=== PATIENT | female | born 1955 | race American Indian/Alaskan Native ===

== ENCOUNTER 2016-09-30 10:53 | Outpatient (CLI) | payer MEDICARE ==
--- NOTE | 2016-09-30 15:10 | Fluoroscopy Report ---
DOUBLE CONTRAST BARIUM ENEMA INDICATION: Colon cancer screening. Recent colonoscopy. COMPARISON: None similar. FINDINGS: Preliminary radiograph demonstrates nonobstructive bowel gas pattern. Few right hemipelvic phleboliths. Probable cholecystectomy clips. Various advanced bony degenerative changes. Using fluoroscopic guidance, the entire colon filled in retrograde fashion with barium and air. The colonic caliber and mucosal pattern appear normal in appearance. No constricting lesions or fixed intraluminal masses identified. Reflux identified into the terminal ileum and appendix. CONCLUSION: Normal air contrast barium enema with few incidental findings, as described. Thank you for the opportunity to participate in this patient's care.
== END 2016-09-30 10:54 | disposition home or self-care (01) ==
LOC: FLUORO 10:53
PROVIDERS: ATTEND Internal Medicine Gastroenterology
DX: Z12.11 Encounter for screening for malignant neoplasm of colon (principal); I87.8 Other specified disorders of veins; Z86.010 Personal history of colon polyps
CPT/HCPCS: 74280

== ENCOUNTER 2016-10-06 00:32 | Emergency (ER) | payer MEDICARE ==
[2016-10-06] MEDS ORDERED: NACL 0.9% 1000 ML 1,000 ML IV ONE (01:20)
[2016-10-06 01:50] LABS: Basophils % (Auto) 1.3 % (0.0-1.8); Eosinophils % (Auto) 2.1 % (0.0-4.3); Hematocrit 34.7 % (30.3-42.9); Hemoglobin 11.5 gm/dl (10.1-14.3); Mean Corpuscular HGB Conc 33 % (30-34); Mean Corpuscular Hemoglobin 26 pg (28-32); Mean Corpuscular Volume 80 fl (79-97); Platelet Count 261 K/mm3 (140-440); Red Blood Count 4.35 M/mm3 (3.65-5.03); Red Cell Distribution Width 13.4 % (13.2-15.2); White Blood Count 8.6 K/mm3 (4.5-11.0)
[2016-10-06 01:53] LABS: INR 0.92 (0.87-1.13)
[2016-10-06 01:54] LABS: Partial Thromboplastin Time 28.4 Sec. (24.2-36.6)
[2016-10-06 02:05] LABS: Alanine Aminotransferase 8 units/L (7-56); Albumin/Globulin Ratio 1.3 %; Alkaline Phosphatase 136 units/L (35-129); Anion Gap 16 mmol/L; BUN/Creatinine Ratio 14.44; Bilirubin,Total < 0.20 mg/dL (0.1-1.2); Blood Urea Nitrogen 26 mg/dL (7-17); Calcium 8.8 mg/dL (8.4-10.2); Carbon Dioxide 28 mmol/L (22-30); Chloride 99.1 mmol/L (98-107); Glucose 309 mg/dL (65-100); Lipase 17 units/L (13-60); Potassium 4.7 mmol/L (3.6-5.0); Sodium 138 mmol/L (137-145); Total Protein 7.2 g/dL (6.3-8.2)
[2016-10-06 05:10] LABS: Bilirubin,Urine NEG (Negative); Blood,Urine NEG (Negative); Ketones,Urine NEG (Negative); Leukocyte Esterase,Urine NEG (Negative); Mucus,Urine FEW /HPF; Nitrite,Urine NEG (Negative); Protein,Urine <15 mg/dL mg/dL (Negative); Urobilinogen,Urine < 2.0 mg/dL (<2.0); WBC,Urine < 1.0 /HPF (0.0-6.0)
--- NOTE | 2016-10-06 06:21 | Emergency Department Report ---
ED GI Bleed HPI - General Chief complaint: GI Bleed Stated complaint: RECTAL BLEEDING Time Seen by Provider: 10/06/16 06:06 Source: patient, RN notes reviewed Mode of arrival: Ambulatory Limitations: No Limitations - History of Present Illness Initial comments: 61-year-old female presents to the emergency department complaining of rectal bleeding. Patient states she underwent a colonoscopy on September 26 followed by barium enema on October 03. She states that she was feeling constipated for this and took a laxative at home. Yesterday, patient states she fell she did have a bowel movement, but did feel like she was going to have to push. Last night she had a bowel movement after bearing down and states there was nothing but bright red blood in the toilet. Patient denies pain associated with the bleeding. There has been no other instances of bleeding since then. There are no other complaints. MD complaint: gross hematochezia -: Sudden, During the night Quality: painless Consistency: now resolved Improves with: none Worsens with: none Context: hemorrhoids Associated Symptoms: denies other symptoms - Related Data Home Medications Medication Instructions Recorded Confirmed Last Taken Insulin NPH Hum/Reg Insulin Hm 10 unit SQ QPM 10/06/14 10/09/14 10/08/14 [NovoLIN 70-30 100 Unit/ml Vial] Insulin NPH Hum/Reg Insulin Hm 15 unit SQ QAM 10/06/14 10/09/14 10/08/14 [NovoLIN 70-30 100 Unit/ml Vial] Levothyroxine [Synthroid] 125 mcg PO QAM 10/06/14 10/09/14 10/09/14 Lisinopril [Zestril] 20 mg PO QDAY 10/06/14 10/09/14 10/08/14 Lovastatin [Altoprev] 40 mg PO QPM 10/06/14 10/09/14 10/08/14 [place]-3 Fatty Acids/Fish Oil [Fish 1 each PO DAILY 10/06/14 10/06/14 09/07/14 Oil] Omeprazole [PriLOSEC] 20 mg PO PRN 10/06/14 10/09/14 10/08/14 Allergies Allergy/AdvReac Type Severity Reaction Status Date / Time aspirin Allergy Seizure Verified 10/06/14 10:43 naproxen [From Naprosyn] Allergy Seizure Verified 10/06/14 10:43 ED Review of Systems ROS: Stated complaint: RECTAL BLEEDING Other details as noted in HPI Comment: All other systems reviewed and negative Gastrointestinal: hematochezia ED Past Medical Hx - Past Medical History Previous Medical History?: Yes Hx Hypertension: Yes Hx Diabetes: Yes Hx GERD: Yes Hx Sickle Cell Disease: Yes (Sickle cell trait) Hx Seizures: Yes Additional medical history: hemorrhoids - Surgical History Past Surgical History?: Yes Hx Cholecystectomy: Yes - Family History Family history: no significant - Social History Smoking Status: Current Every Day Smoker Substance Use Type: None - Medications Home Medications: Home Medications Medication Instructions Recorded Confirmed Last Taken Type Insulin NPH Hum/Reg Insulin Hm 10 unit SQ QPM 10/06/14 10/09/14 10/08/14 History [NovoLIN 70-30 100 Unit/ml Vial] Insulin NPH Hum/Reg Insulin Hm 15 unit SQ QAM 10/06/14 10/09/14 10/08/14 History [NovoLIN 70-30 100 Unit/ml Vial] Levothyroxine [Synthroid] 125 mcg PO QAM 10/06/14 10/09/14 10/09/14 History Lisinopril [Zestril] 20 mg PO QDAY 10/06/14 10/09/14 10/08/14 History Lovastatin [Altoprev] 40 mg PO QPM 10/06/14 10/09/14 10/08/14 History [place]-3 Fatty Acids/Fish Oil [Fish 1 each PO DAILY 10/06/14 10/06/14 09/07/14 History Oil] Omeprazole [PriLOSEC] 20 mg PO PRN 10/06/14 10/09/14 10/08/14 History ED Physical Exam - General Limitations: No Limitations General appearance: alert, in no apparent distress - Head Head exam: Present: atraumatic, normocephalic - Eye Eye exam: Present: normal appearance, PERRL, EOMI - ENT ENT exam: Present: normal exam, normal orophraynx, mucous membranes moist - Neck Neck exam: Present: normal inspection, full ROM. Absent: tenderness - Respiratory Respiratory exam: Present: normal lung sounds bilaterally. Absent: respiratory distress - Cardiovascular Cardiovascular Exam: Present: regular rate, normal rhythm, normal heart sounds - GI/Abdominal GI/Abdominal exam: Present: soft, normal bowel sounds. Absent: distended, tenderness - Extremities Exam Extremities exam: Present: normal inspection, full ROM. Absent: tenderness - Back Exam Back exam: Present: normal inspection, full ROM. Absent: tenderness - Neurological Exam Neurological exam: Present: alert, oriented X3. Absent: motor sensory deficit - Skin Skin exam: Present: warm, dry, intact ED Course Vital Signs 10/06/16 10/06/16 10/06/16 01:12 02:04 02:11 Temperature 99 F Pulse Rate 110 H 104 H 89 Respiratory 18 13 16 Rate Blood Pressure 138/74 113/65 O2 Sat by Pulse 99 Oximetry 10/06/16 10/06/16 10/06/16 02:21 02:31 02:41 Temperature Pulse Rate 93 H 94 H 90 Respiratory 14 10 L 11 L Rate Blood Pressure 113/65 113/65 113/65 O2 Sat by Pulse 99 Oximetry ED Medical Decision Making - Lab Data Result diagrams: 10/06/16 01:24 10/06/16 01:24 - EKG Data -: EKG Interpreted by De EKG shows normal: sinus rhythm, axis, intervals, QRS complexes, ST-T waves Rate: normal - EKG Data When compared to previous EKG there are: no significant change Interpretation: normal EKG, unchanged when compared t (11/10/2011) - Medical Decision Making Laboratory results reviewed and discussed with the patient. Patient has had no further bleeding. Her hemoglobin is stable. There is no indication for further evaluation at this time. Patient will be discharged home to follow up with her shirt folder - Differential Diagnosis GI bleed, anemia Critical care attestation.: If time is entered above; I have spent that time in minutes in the direct care of this critically ill patient, excluding procedure time. ED Disposition Clinical Impression: Rectal bleeding Disposition: DISCHARGED TO HOME OR SELFCARE Is pt being admited?: No Condition: Stable Instructions: Rectal Bleeding (ED) Additional Instructions: Continue taking all medications as directed. Be sure to follow up with your shirt folder later today. If symptoms worsen, or if new symptoms develop , return to the emergency department. Referrals: PRIMARY CARE, [Primary Care Provider] - 3-5 Days Forms: Accompanied Note Time of Disposition: 06:23
[2016-10-06 07:07] VITALS: BP 123/60
== END 2016-10-06 07:08 | disposition home or self-care (01) ==
LOC: ED 00:32
DX: K62.5 Hemorrhage of anus and rectum (principal); I10 Essential (primary) hypertension; E11.9 Type 2 diabetes mellitus without complications; K21.9 Gastro-esophageal reflux disease without esophagitis; F17.200 Nicotine dependence, unspecified, uncomplicated
CPT/HCPCS: 36415; 80053; 81001; 83690; 85025; 85610; 85730; 86850; 86900; 86901; 93005; 93010; 96360; 96361; 99284; J7030

== ENCOUNTER 2021-12-07 22:10 | Emergency (ER) | payer MEDICARE ==
[2021-12-07] MEDS ORDERED: NALOXONE 2 MG/2 ML INJ IV ONE (22:20)
[2021-12-07] MEDS ORDERED: SODIUM CHLORIDE 0.9% 1000 ML 1,000 ML IV ONE (22:20)
--- NOTE | 2021-12-07 22:46 | XRay Report ---
CHEST 1 VIEW 12/07/2021 10:27 PM INDICATION / CLINICAL INFORMATION: Altered Mental Status. COMPARISON: 10/11/2014. FINDINGS: SUPPORT DEVICES: None. HEART / MEDIASTINUM: No significant abnormality. LUNGS / PLEURA: No significant pulmonary or pleural abnormality. No pneumothorax. ADDITIONAL FINDINGS: No significant additional findings. IMPRESSION: No acute abnormality. Signer Name: Jameson Artis MD Signed: 12/07/2021 10:42 PM Workstation Name: [id number]
[2021-12-07 23:05] LABS: Basophils % (Auto) 0.3 % (0.0-1.8); Eosinophils # (Auto) 0.1 K/mm3 (0.0-0.4); Eosinophils % (Auto) 1.2 % (0.0-4.3); Hematocrit 30.5 % (30.3-42.9); Hemoglobin 10.2 gm/dl (10.1-14.3); Lymphocytes % (Auto) 8.6 % (13.4-35.0); Mean Corpuscular HGB Conc 33 % (30-34); Mean Corpuscular Volume 81 fl (79-97); Monocytes # (Auto) 0.7 K/mm3 (0.0-0.8); Monocytes % (Auto) 6.4 % (0.0-7.3); Platelet Count 213 K/mm3 (140-440); Red Blood Count 3.78 M/mm3 (3.65-5.03); Red Cell Distribution Width 14.8 % (13.2-15.2)
[2021-12-07 23:27] LABS: Alanine Aminotransferase 61 units/L (7-56); Albumin 3.6 g/dL (3.9-5); BUN/Creatinine Ratio 15; Blood Urea Nitrogen 24 mg/dL (7-17); Calcium 9.1 mg/dL (8.4-10.2); Hemolysis Index 2
[2021-12-07 23:36] LABS: INR 0.87 (0.87-1.13)
--- NOTE | 2021-12-07 23:45 | Emergency Department Report ---
ED General Adult HPI - General Chief complaint: Overdose Stated complaint: POSS OD PUI?: No Time Seen by Provider: 12/07/21 22:20 Source: patient Mode of arrival: Ambulatory Limitations: No Limitations - History of Present Illness Initial comments: Per pt: Took 1 Hydrocodone as directed. Family called EMS because pt was unresponsive. Narcan given 2mg IV and woke up. Denies pain nor discomfort. AAOX3. -: Sudden, minutes(s) Radiation: non-radiation Consistency: now resolved Improves with: none Worsens with: none Associated Symptoms: denies: denies other symptoms, confusion, chest pain, cough, diaphoresis - Related Data Home Medications Medication Instructions Recorded Confirmed Last Taken Insulin NPH Hum/Reg Insulin Hm 10 unit SQ QPM 10/06/14 10/09/14 10/08/14 [NovoLIN 70-30 100 Unit/ml Vial] Insulin NPH Hum/Reg Insulin Hm 15 unit SQ QAM 10/06/14 10/09/14 10/08/14 [NovoLIN 70-30 100 Unit/ml Vial] Levothyroxine [Synthroid] 125 mcg PO QAM 10/06/14 10/09/14 10/09/14 Lovastatin [Altoprev] 40 mg PO QPM 10/06/14 10/09/14 10/08/14 [place]-3 Fatty Acids/Fish Oil [Fish 1 each PO DAILY 10/06/14 10/06/14 09/07/14 Oil] Omeprazole [PriLOSEC] 20 mg PO PRN 10/06/14 10/09/14 10/08/14 lisinopriL [Zestril] 20 mg PO QDAY 10/06/14 10/09/14 10/08/14 Allergies Allergy/AdvReac Type Severity Reaction Status Date / Time aspirin Allergy Seizure Verified 10/06/14 10:43 naproxen [From Naprosyn] Allergy Seizure Verified 10/06/14 10:43 ED Review of Systems ROS: Stated complaint: POSS OD Other details as noted in HPI Constitutional: denies: chills, fever Eyes: denies: eye pain, eye discharge, vision change ENT: denies: ear pain, throat pain Respiratory: denies: cough, shortness of breath, wheezing Cardiovascular: denies: chest pain, palpitations Endocrine: no symptoms reported Gastrointestinal: denies: abdominal pain, nausea, diarrhea Genitourinary: denies: urgency, dysuria, discharge Musculoskeletal: denies: back pain, joint swelling, arthralgia Skin: denies: rash, lesions Neurological: denies: headache, weakness, paresthesias Psychiatric: denies: anxiety, depression Hematological/Lymphatic: denies: easy bleeding, easy bruising ED Past Medical Hx - Past Medical History Previous Medical History?: Yes Hx Hypertension: Yes Hx Diabetes: Yes Hx GERD: Yes Hx Sickle Cell Disease: Yes (Sickle cell trait) Hx Seizures: Yes Hx Asthma: Yes Additional medical history: hemorrhoids - Surgical History Past Surgical History?: Yes Hx Cholecystectomy: Yes - Social History Smoking Status: Never Smoker Substance Use Type: None - Medications Home Medications: Home Medications Medication Instructions Recorded Confirmed Last Taken Type Insulin NPH Hum/Reg Insulin Hm 10 unit SQ QPM 10/06/14 10/09/14 10/08/14 History [NovoLIN 70-30 100 Unit/ml Vial] Insulin NPH Hum/Reg Insulin Hm 15 unit SQ QAM 10/06/14 10/09/14 10/08/14 History [NovoLIN 70-30 100 Unit/ml Vial] Levothyroxine [Synthroid] 125 mcg PO QAM 10/06/14 10/09/14 10/09/14 History Lovastatin [Altoprev] 40 mg PO QPM 10/06/14 10/09/14 10/08/14 History [place]-3 Fatty Acids/Fish Oil [Fish 1 each PO DAILY 10/06/14 10/06/14 09/07/14 History Oil] Omeprazole [PriLOSEC] 20 mg PO PRN 10/06/14 10/09/14 10/08/14 History lisinopriL [Zestril] 20 mg PO QDAY 10/06/14 10/09/14 10/08/14 History ED Physical Exam - General Limitations: No Limitations General appearance: alert, other (drwosy ) - Head Head exam: Present: atraumatic, normocephalic - Eye Eye exam: Present: normal appearance - ENT ENT exam: Present: mucous membranes moist - Neck Neck exam: Present: normal inspection - Respiratory Respiratory exam: Present: normal lung sounds bilaterally. Absent: respiratory distress - Cardiovascular Cardiovascular Exam: Present: regular rate, normal rhythm. Absent: systolic murmur, diastolic murmur, rubs, gallop - GI/Abdominal GI/Abdominal exam: Present: soft, normal bowel sounds - Extremities Exam Extremities exam: Present: normal inspection - Back Exam Back exam: Present: normal inspection - Neurological Exam Neurological exam: Present: alert, oriented X3 - Psychiatric Psychiatric exam: Present: normal affect, normal mood - Skin Skin exam: Present: warm, dry, intact, normal color. Absent: rash ED Course Vital Signs 12/07/21 12/07/21 12/07/21 22:11 22:20 22:31 Temperature 98 F Pulse Rate 115 H 112 H 110 H Respiratory 18 15 21 Rate Blood Pressure 152/77 104/53 O2 Sat by Pulse 97 87 89 Oximetry 12/07/21 12/07/21 12/07/21 22:43 22:45 23:01 Temperature Pulse Rate 109 H 108 H Respiratory 17 17 Rate Blood Pressure 104/53 105/66 O2 Sat by Pulse 88 97 98 Oximetry ED Medical Decision Making - Lab Data Result diagrams: 12/07/21 22:37 12/07/21 22:37 - EKG Data -: EKG Interpreted by Me EKG shows normal: sinus rhythm Rate: tachycardia - EKG Data When compared to previous EKG there are: no significant change Interpretation: no acute changes - Radiology Data Radiology results: report reviewed, image reviewed - Medical Decision Making pt is awake and alert , vss , some dehdyration noted , fluids given , no SI or HI Critical care attestation.: If time is entered above; I have spent that time in minutes in the direct care of this critically ill patient, excluding procedure time. ED Disposition Clinical Impression: Accidental ingestion of substance Disposition: 01 HOME / SELF CARE / HOMELESS Is pt being admited?: No Does the pt Need Aspirin: No Condition: Stable Instructions: Preventing Poisoning, Adult
[2021-12-08 00:51] VITALS: BP 96/64
--- NOTE | 2021-12-08 19:54 | Electrocardiograph Report ---
[facility] Test Date: 2021-12-07 Test Time: 22:34:20 Pat Name: BREANNA THACKER Department: Room: Gender: F Lead Slot Technician: BRIANNA : 1955 Requested By: ARMANI WOLFE Order Number: [id number] Reading MD: Blair Jones Measurements Intervals [place] Rate: 111 P: 68 [place]: 150 QRS: -15 QRSD: 104 T: 90 QT: 366 QTc: 498 Interpretive Statements Sinus tachycardia Nonspecific ST and T abnormalities, lateral leads No previous ECG available for comparison Electronically Signed On 12-08-2021 19:54:06 EDT by Blair Jones
== END 2021-12-08 02:00 | disposition home or self-care (01) ==
LOC: ED 22:10
DX: T50.7X1A Poisoning by analeptics and opioid receptor antagonists, accidental (unintentional), initial encounter (principal); I10 Essential (primary) hypertension; E11.9 Type 2 diabetes mellitus without complications; K21.9 Gastro-esophageal reflux disease without esophagitis; J45.909 Unspecified asthma, uncomplicated; R56.9 Unspecified convulsions; D57.00 Hb-SS disease with crisis, unspecified; Z88.6 Allergy status to analgesic agent; Z91.09 Other allergy status, other than to drugs and biological substances; Z79.899 Other long term (current) drug therapy; Y92.89 Other specified places as the place of occurrence of the external cause
CPT/HCPCS: 36415; 71045; 80053; 82140; 82550; 84484; 85025; 85610; 93005; 96360; 99284; J7030; 80320; G0480

== ENCOUNTER 2022-01-17 11:05 | Emergency (ER) | payer MEDICARE ==
--- NOTE | 2022-01-17 11:18 | Emergency Department Report ---
HPI - General Time Seen by Provider: 01/17/22 11:13 - HPI HPI: Room 2 The patient is a 66-year-old female presenting in cardiac arrest. Per EMS the patient was found collapsed facedown on her bed EMS was called and arrived on scene at 10:21 to find the patient in asystole. ACLS protocols were initiated and the patient was eventually intubated with a Joe airway. EMS administered 4 rounds of epinephrine, 1 round of sodium bicarb and Narcan prior to arrival. Upon arrival to the ED the Joe airway was removed and patient was intubated by myself using glidescope. ACLS protocols were continued but there was no return of spontaneous circulation ED Past Medical Hx - Past Medical History Hx Hypertension: Yes Hx Diabetes: Yes Hx GERD: Yes Hx Sickle Cell Disease: Yes (Sickle cell trait) Hx Seizures: Yes Hx Asthma: Yes Additional medical history: hemorrhoids - Surgical History Hx Cholecystectomy: Yes - Family History Family history: no significant - Social History Smoking Status: Never Smoker Substance Use Type: None - Medications Home Medications: Home Medications Medication Instructions Recorded Confirmed Last Taken Type Insulin NPH Hum/Reg Insulin Hm 10 unit SQ QPM 10/06/14 10/09/14 10/08/14 History [NovoLIN 70-30 100 Unit/ml Vial] Insulin NPH Hum/Reg Insulin Hm 15 unit SQ QAM 10/06/14 10/09/14 10/08/14 History [NovoLIN 70-30 100 Unit/ml Vial] Levothyroxine [Synthroid] 125 mcg PO QAM 10/06/14 10/09/14 10/09/14 History Lovastatin [Altoprev] 40 mg PO QPM 10/06/14 10/09/14 10/08/14 History [place]-3 Fatty Acids/Fish Oil [Fish 1 each PO DAILY 10/06/14 10/06/14 09/07/14 History Oil] Omeprazole [PriLOSEC] 20 mg PO PRN 10/06/14 10/09/14 10/08/14 History lisinopriL [Zestril] 20 mg PO QDAY 10/06/14 10/09/14 10/08/14 History ED Review of Systems ROS: Stated complaint: CARDIAC ARREST Other details as noted in HPI Comment: Unobtainable due to pts medical conditions Physical Exam - Physical Exam Physical Exam: GENERAL: The patient is well-developed well-nourished female lying on stretcher receiving chest compressions. [] HEENT: Normocephalic. Atraumatic. NECK: Supple. Trachea midline CHEST/LUNGS: Clear to auscultation. There is no respiratory distress noted. HEART/CARDIOVASCULAR: Regular. There is no tachycardia. There is no gallop rub or murmur. ABDOMEN: Abdomen is soft, nontender. Patient has normal bowel sounds. There is no abdominal distention. SKIN: There is no rash. There is no edema. There is no diaphoresis. NEURO: GCS 3 T MUSCULOSKELETAL:There is no evidence of acute injury. ED Medical Decision Making - Differential Diagnosis Cardiac arrest Critical care attestation.: If time is entered above; I have spent that time in minutes in the direct care of this critically ill patient, excluding procedure time. ED Disposition Clinical Impression: Cardiac arrest Disposition: 20 Is pt being admited?: No Does the pt Need Aspirin: No Condition: Poor Time of Disposition: 11:14 (Patient )
== END 2022-01-17 15:00 ==
LOC: ED 11:05
DX: I46.9 Cardiac arrest, cause unspecified (principal); I10 Essential (primary) hypertension; E11.9 Type 2 diabetes mellitus without complications; K21.9 Gastro-esophageal reflux disease without esophagitis; J45.909 Unspecified asthma, uncomplicated; Z90.49 Acquired absence of other specified parts of digestive tract; Z88.6 Allergy status to analgesic agent; Z88.8 Allergy status to other drugs, medicaments and biological substances; Z79.899 Other long term (current) drug therapy
CPT/HCPCS: 31500; 92950; 99285